=== PATIENT | female | born 2000 | race Caucasian/White ===

== ENCOUNTER 2020-01-26 04:26 | Emergency (ER) | payer BC, SELFPAY ==
[2020-01-26] VITALS (9 sets, daily range): BP systolic 119–134; BP diastolic 69–83; PULSE 93–113; RESP 18–40; TEMP 37.3; O2SAT 98–100; BMI 28.1
--- NOTE | 2020-01-26 04:40 | XR_ITS ---
WS: [id number] Right hand, 3 views, 01/26/2020 Clinical Data: Trauma Comparison: None. Findings: No fractures or dislocations are seen. The soft tissues are unremarkable. The joint space s are normal XR/XR hand RT min 3V* [id number] Impression: Negative right hand.
--- NOTE | 2020-01-26 04:40 | XR_ITS ---
WS: [id number] Right wrist, 3 views, 01/26/2020 Clinical Data: Trauma Comparison: None. Findings: No fractures or dislocations are seen. The carpal bones are intact. There is no soft tissue swelling. The distal radius and ulna are not remarkable. XR/XR wrist RT min 3V* [id number] Impression: Negative right wrist.
--- NOTE | 2020-01-26 04:40 | XR_ITS ---
WS: [id number] Right forearm, 2 views, 01/26/2020 Clinical Data: Trauma Comparison: None. Findings: No fractures or dislocations are seen. The soft tissues are normal. The visualized left wrist and elb ow show no obvious abnormalities. XR/XR forearm RT 2V [id number] Impression: Negative for fracture.
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
--- NOTE | 2020-01-26 04:40 | XR_ITS ---
WS: [id number] Right elbow, 3 views, 01/26/2020 Clinical Data: Trauma Comparison: None. Findings: No fractures or dislocations are seen. The radial head is normal. The soft tissues are unremarkable. XR/XR elbow RT min 3V* [id number] Impression: Negative right elbow.
--- NOTE | 2020-01-26 04:40 | XR_ITS ---
WS: [id number] Right shoulder, 3 views, 01/26/2020 Clinical Data: Trauma Comparison: None. Findings: No fractures or dislocations are seen. The AC joint is normal. The adjacent right clavicle, right sca pula and ribs are normal. The soft tissues are unremarkable. XR/XR shoulder RT min 2V* [id number] Impression: Negative right shoulder.
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
--- NOTE | 2020-01-26 04:40 | XR_ITS ---
WS: [id number] Right arm and humerus, 2 views, 01/26/2020 Clinical Data: Trauma Comparison: None. Findings: No fractures or dislocations are seen. The shaft of the humerus is intact. XR/[place] [id number] Impression: Negative right arm and humerus.
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
[2020-01-26] MEDS: iohexol 300 mg/mL 100 mL Btl IV (06:33)
[2020-01-26 07:21] LABS: Basophils # 0.1 10^3/uL (0.0-0.1); Basophils % 0.2 %; Hemoglobin 13.3 g/dL (11.5-15.3); Lymphocytes # 0.8 10^3/uL (1.5-6.5); Lymphocytes % 3.4 %; Mean Corpuscular HGB Conc 32.4 g/dL (30.0-36.0); Mean Corpuscular Hemoglobin 28.4 pg (28.0-34.0); Mean Corpuscular Volume 87.6 fL (81-99); Monocytes # 1.8 10^3/uL (0.2-0.9); Monocytes % 7.5 %; Neutrophils # 21.31 10^3/uL (1.8-8.0); Neutrophils % 88.5 %; Nucleated Red Blood Cells % 0 %; Platelet Count 234 10^3/cmm (130-400); Red Blood Count 4.68 10^6/uL (4.1-5.3); Red Cell Distribution Width 13.1 % (12.1-15.1); White Blood Count 24.1 10^3/uL (4.5-13.0)
[2020-01-26 07:39] LABS: HCG, Serum Qual Negative (Negative)
[2020-01-26 07:43] LABS: INR 1.06 (0.8-1.2)
[2020-01-26 07:44] LABS: Alanine Aminotransferase 209 U/L (0-33); Albumin Level 4.5 g/dL (3.5-5.2); Alkaline Phosphatase 78 IU/L (35-105); Anion Gap 16.5 (5-19); Aspartate Amino Transferase 222 U/L (0-32); Blood Urea Nitrogen 4 mg/dL (6-20); Calcium 8.3 mg/dL (8.5-10.5); Carbon Dioxide 21 mmol/L (22-29); Chloride 106 mmol/L (98-107); Globulin 3.3 g/dL (1.3-4.6); Glomerular Filtration Rate 157.3 mL/min (90-130); Glucose 108 mg/dL (65-115); Osmolality Calculated 286 mOsm/kg (285-295); Partial Thromboplastin Time 28.8 SECONDS (23.9-36.7); Potassium 3.5 mmol/L (3.5-5.1); Sodium 140 mmol/L (136-145); Total Bilirubin 0.4 mg/dL (0.15-1.2); Total Protein 7.8 g/dL (6.6-8.7)
[2020-01-26] MEDS: ondansetron 2 mg/ML SDV 2 mL 4 MG IVP (08:13)
--- NOTE | 2020-01-26 08:22 | PC.NURSE ---
placed moist dressing to laceration on chin. pt c/o low back pain. ED physician notified. ED physician in room to evaluate. continuing to monitor.
== END 2020-01-26 09:12 ==
PROVIDERS: Emergency Medicine; Emergency Provider Family Medicine; PCP Nurse Practitioner
DX: Z04.1 Encounter for examination and observation following transport accident (principal); V86.69XA Passenger of other special all-terrain or other off-road motor vehicle injured in nontraffic accident, initial encounter
CPT/HCPCS: 12345; 36415; 51702; 70450; 70486; 71045; 71260; 72125; 72128; 72131; 72170; 73030; 73060; 73080; 73090; 73110; 73130; 74177; 80053; 84703; 85018; 85025; 85610; 85730; 86850; 86900; 96361; 96374; 96375; 99284; 99285; J2405; Q9967

== ENCOUNTER 2020-03-14 15:17 | Outpatient (CLI) | payer BC, SELFPAY ==
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
== END 2020-03-14 15:18 | disposition home or self-care (01) ==
LOC: RAD 15:24
PROVIDERS: PCP Nurse Practitioner Family; Visit Provider Nurse Practitioner Family
DX: M79.671 Pain in right foot (principal)
CPT/HCPCS: 73630

== ENCOUNTER 2020-03-17 15:33 | Emergency (ER) | payer BC, SELFPAY ==
[2020-03-17 15:55] VITALS: BP 117/77; PULSE 98; RESP 18; TEMP 37.2; O2SAT 98; BMI 28.4
[2020-03-17 16:38] LABS: Add Urine Microscopic? YES; Bilirubin Urine Neg (Negative); Blood Urine 3+ (Negative); Glucose Urine UA Norm (Normal); HCG Qualitative Urine. Negative (Negative); Ketones Urine Negative (Negative); Leukocyte Esterase Urine 2+ (Negative); Nitrate Urine Negative (Negative); Protein Urine 1+ (Negative); Specific Gravity, Urine 1.025 (1.005-1.030); Urine Color Yellow (Yellow); Urobilinogen Urine Neg (Negative); pH Urine 5 (5-7)
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
[2020-03-17 16:49] LABS: Add Urine Culture? No; Bacteria Urine 1+ /hpf; Mucus Urine 1+ /hpf; RBC Urine >100 /hpf (0-2); WBC Urine >100 /hpf (0-5)
[2020-03-17] MEDS: phenazopyridine 100 mg Tablet 200 MG PO (16:52)
[2020-03-17 17:04] VITALS: BP 132/94
[2020-03-17 17:14] LABS: Basophils % 0.2 %; Eosinophils # 0.1 10^3/uL (0.0-0.8); Eosinophils % 0.4 %; Hematocrit 42.6 % (37.0-47.0); Hemoglobin 13.7 g/dL (11.5-15.3); Lymphocytes # 2.3 10^3/uL (1.5-6.5); Mean Corpuscular HGB Conc 32.2 g/dL (30.0-36.0); Mean Corpuscular Hemoglobin 28.7 pg (28.0-34.0); Mean Corpuscular Volume 89.3 fL (81-99); Mean Platelet Volume 11.9 fL (7.4-10.4); Monocytes # 0.8 10^3/uL (0.2-0.9); Neutrophils # 13.24 10^3/uL (1.8-8.0); Nucleated Red Blood Cells % 0 %; Platelet Count 208 10^3/cmm (130-400); Red Blood Count 4.77 10^6/uL (4.1-5.3); Red Cell Distribution Width 13.4 % (12.1-15.1); White Blood Count 16.5 10^3/uL (4.5-13.0)
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
[2020-03-17 18:12] LABS: Alanine Aminotransferase 12 U/L (0-33); Albumin Level 4.6 g/dL (3.5-5.2); Alkaline Phosphatase 79 IU/L (35-105); Anion Gap 14.9 (5-19); Aspartate Amino Transferase 14 U/L (0-32); Blood Urea Nitrogen 8 mg/dL (6-20); Carbon Dioxide 22 mmol/L (22-29); Chloride 106 mmol/L (98-107); Globulin 3.1 g/dL (1.3-4.6); Glomerular Filtration Rate 106.7 mL/min (90-130); Glucose 98 mg/dL (65-115); Osmolality Calculated 286 mOsm/kg (285-295); Potassium 3.9 mmol/L (3.5-5.1); Sodium 139 mmol/L (136-145); Total Bilirubin 0.2 mg/dL (0.15-1.2); Total Protein 7.7 g/dL (6.6-8.7)
[2020-03-17] MEDS: iohexol 300 mg/mL 100 mL Btl IV (18:18)
[2020-03-17 18:35] VITALS: BP 127/82; PULSE 90; O2SAT 100
[2020-03-17 19:45] VITALS: BP 124/94; PULSE 100; RESP 18; O2SAT 99
== END 2020-03-17 19:47 | disposition home or self-care (01) ==
PROVIDERS: Emergency Medicine; Emergency Provider Emergency Medicine; PCP Nurse Practitioner Family
DX: N39.0 Urinary tract infection, site not specified (principal); N76.0 Acute vaginitis
CPT/HCPCS: 12345; 70491; 76700; 76705; 80053; 81001; 81025; 85025; 99283; Q9967

== ENCOUNTER 2020-06-07 06:00 | Outpatient (RCR) | payer BC, SELFPAY | END 2020-06-15 23:59 | disposition home or self-care (01) | LOC: SPT 06:00 | PROVIDERS: PCP Nurse Practitioner Family; Referring Provider Physician Assistant; Visit Provider Physician Assistant | DX: S22.02 Fracture of second thoracic vertebra (principal); X58.XXXD Exposure to other specified factors, subsequent encounter | CPT/HCPCS: 97110; 97161 ==

== ENCOUNTER 2020-06-16 06:00 | Outpatient (RCR) | payer BC, SELFPAY | END 2020-07-16 23:59 | disposition home or self-care (01) | LOC: SPT 06:00 | PROVIDERS: PCP Nurse Practitioner Family; Referring Provider Physician Assistant; Visit Provider Physician Assistant | DX: S22.02 Fracture of second thoracic vertebra (principal); X58.XXXD Exposure to other specified factors, subsequent encounter | CPT/HCPCS: 97110 ==

== ENCOUNTER → 2020-06-29 08:56 | Outpatient (BNVA) | payer BC, SELFPAY | PROVIDERS: PCP Nurse Practitioner Family; Visit Provider Obstetrics & Gynecology | DX: Z32.00 Encounter for pregnancy test, result unknown (principal) | CPT/HCPCS: 81025 ==

== ENCOUNTER → 2020-07-06 16:30 | Outpatient (BNVA) | payer BC, SELFPAY | PROVIDERS: PCP Nurse Practitioner Family; Visit Provider Nurse Practitioner Family | DX: N39.0 Urinary tract infection, site not specified (principal) | CPT/HCPCS: 81003; 87086 ==

== ENCOUNTER → 2024-12-06 10:41 | Outpatient (BNVA) | payer BC, MEDICAID, SELFPAY | PROVIDERS: PCP Nurse Practitioner Family; Visit Provider Registered Nurse Neonatal Intensive Care | DX: R39.9 Unspecified symptoms and signs involving the genitourinary system (principal) | CPT/HCPCS: 81000 ==

== ENCOUNTER → 2025-01-24 10:35 | Outpatient (BNVA) | payer BC, MEDICAID, SELFPAY | PROVIDERS: PCP Nurse Practitioner Family; Referring Provider Nurse Practitioner Family; Visit Provider Psychiatry & Neurology Neurology | DX: G43.909 Migraine, unspecified, not intractable, without status migrainosus (principal); G89.29 Other chronic pain; R39.9 Unspecified symptoms and signs involving the genitourinary system | CPT/HCPCS: 36415; 80053; 82306; 82607; 82746; 83735; 83921; 84439; 84443; 85025; 87086 ==

== ENCOUNTER 2025-03-10 10:53 | Outpatient (CLI) | payer BC, MEDICAID, SELFPAY ==
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
[2025-03-10] MEDS: gadobenate dimeglumine 20 mL vial IV (12:22)
== END 2025-03-10 10:54 | disposition home or self-care (01) ==
PROVIDERS: Visit Provider Psychiatry & Neurology Neurology
DX: M54.2 Cervicalgia (principal)
CPT/HCPCS: 70553; 72141